=== PATIENT | male | born 1940 | race Caucasian/White ===

== ENCOUNTER 2019-06-29 08:08 | Day surgery (SDC) | payer MEDICARE ==
[~2019-06-29] VITALS: Ht 180.3 cm; Wt 71.9 kg
[2019-06-29] MEDS ORDERED: WARF-65 PO (08:43)
[2019-06-29] MEDS ORDERED: CYAN50003 PO (08:43)
[2019-06-29] MEDS ORDERED: ACET-2119 PO (08:43)
[2019-06-29] MEDS ORDERED: ENZA40CA PO (08:43)
[2019-06-29] MEDS ORDERED: GABA-532 PO (08:43)
[2019-06-29 08:45] VITALS: BP 106/66
[2019-06-29 10:02] VITALS: BP 123/72
[2019-06-29 10:15] VITALS: BP 127/81
[2019-06-29 10:45] VITALS: BP 131/77
--- NOTE | 2019-06-29 10:53 | NUR ---
KRISTEN Prescott read chest x-ray and gave order to discharge pt if vital signs stable. VSS as charted, pt tolerated procedure well.
[2019-06-29 11:31] VITALS: BP 106/66
== END 2019-06-29 11:10 | disposition home or self-care (01) ==
LOC: SSTAY O 08:08
PROVIDERS: ATTEND Radiology Diagnostic Radiology
DX: J90 Pleural effusion, not elsewhere classified (principal); Z98.890 Other specified postprocedural states; Z79.899 Other long term (current) drug therapy; G89.29 Other chronic pain; Z86.718 Personal history of other venous thrombosis and embolism; Z85.46 Personal history of malignant neoplasm of prostate
CPT/HCPCS: 32555; 36415; 71045; 85610; C1729